=== PATIENT | female | born 1950 | race American Indian/Alaskan Native ===

== ENCOUNTER 2019-11-12 23:40 | Emergency (ER) | payer MEDICARE, OTHER ==
--- NOTE | 2019-11-13 00:49 | Emergency Department Report ---
ED General Adult HPI - General Chief complaint: Neck Pain/Injury Stated complaint: NECK/BACK PAIN PUI?: No Time Seen by Provider: 11/13/19 00:45 Source: patient, RN notes reviewed, old records reviewed Mode of arrival: Ambulatory Limitations: No Limitations - History of Present Illness Initial comments: Primary care doctor: Dr. Decker The patient is a 69-year-old female. She is not known to myself previously. 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 Patient presents to the emergency room with a complaint of nontraumatic upper thoracic back pain, present for 3 to 4 days, which occasionally radiates to the trapezius. The patient denies headache, chest pain, shortness of breath, abdominal pain, nausea, vomiting, dysuria, irritative and obstructive urinary symptoms, extremity weakness and or numbness. She denies recent travel, surgeries, immobilization. She is somewhat anxious and "feels shaky." Very sparsely consumes alcohol, once every 3 to 4 months. Her pain is throbbing, and improved with rest, and acetaminophen [id number]. -: Gradual, days(s) Location: back Radiation: neck Quality: aching Consistency: intermittent Improves with: medication, rest Worsens with: movement - Related Data Home Medications Medication Instructions Recorded Confirmed Last Taken Levothyroxine [Synthroid] 75 mcg PO QAM 08/31/13 08/03/15 08/30/13 Lisinopril/Hydrochlorothiazide 1 tab PO QDAY 08/31/13 08/03/15 08/30/13 [Lisinopril-Hctz 20-12.5 mg Tab] Metformin HCl [metFORMIN ER] 500 mg PO BID 08/31/13 08/03/15 08/30/13 NIFEdipine [NIFEdipine ER] 90 mg PO QDAY 08/31/13 08/03/15 08/30/13 Previous Rx's Medication Instructions Recorded Last Taken Type Acetaminophen [Acetaminophen 8 650 mg PO Q6HR PRN #30 tab 11/13/19 Unknown Rx Hour] Ibuprofen [Motrin] 400 mg PO Q8H PRN #30 tablet 11/13/19 Unknown Rx Allergies Allergy/AdvReac Type Severity Reaction Status Date / Time No Known Allergies Allergy Verified 08/31/13 08:19 ED Review of Systems ROS: Stated complaint: NECK/BACK PAIN Other details as noted in HPI Constitutional: denies: fever Eyes: denies: eye discharge ENT: denies: epistaxis Respiratory: denies: cough Cardiovascular: denies: chest pain Gastrointestinal: denies: abdominal pain Musculoskeletal: back pain, arthralgia, myalgia Skin: denies: lesions Neurological: denies: weakness, numbness, paresthesias Psychiatric: anxiety ED Past Medical Hx - Past Medical History Previous Medical History?: Yes Hx Hypertension: Yes Hx Diabetes: Yes Hx Renal Disease: Yes Additional medical history: High Cholesterol - Surgical History Past Surgical History?: Yes Additional Surgical History: tubal ligation - Social History Smoking Status: Never Smoker Substance Use Type: None - Medications Home Medications: Home Medications Medication Instructions Recorded Confirmed Last Taken Type Levothyroxine [Synthroid] 75 mcg PO QAM 08/31/13 08/03/15 08/30/13 History Lisinopril/Hydrochlorothiazide 1 tab PO QDAY 08/31/13 08/03/15 08/30/13 History [Lisinopril-Hctz 20-12.5 mg Tab] Metformin HCl [metFORMIN ER] 500 mg PO BID 08/31/13 08/03/15 08/30/13 History NIFEdipine [NIFEdipine ER] 90 mg PO QDAY 08/31/13 08/03/15 08/30/13 History Acetaminophen [Acetaminophen 8 650 mg PO Q6HR PRN #30 tab 11/13/19 Unknown Rx Hour] Ibuprofen [Motrin] 400 mg PO Q8H PRN #30 tablet 11/13/19 Unknown Rx ED Physical Exam - General Limitations: No Limitations General appearance: alert, in no apparent distress - Head Head exam: Present: atraumatic, normocephalic - Eye Eye exam: Present: normal appearance, PERRL, EOMI, other (Visual acuity intact t o finger counting, color perception, reading at a close distance). Absent: nystagmus - ENT ENT exam: Present: normal exam, normal orophraynx, mucous membranes moist, normal external ear exam - Neck Neck exam: Present: normal inspection, tenderness (Reproducible paracervical and posterior trapezius tenderness), full ROM, other (There is no midline cervical spine tenderness) - Respiratory Respiratory exam: Present: normal lung sounds bilaterally. Absent: respiratory distress - Cardiovascular Cardiovascular Exam: Present: tachycardia, systolic murmur (2/6 systolic murmur, loudest at right and left second intercostal spaces. The patient states this is chronic.). Absent: bradycardia, irregular rhythm - GI/Abdominal GI/Abdominal exam: Present: soft, normal bowel sounds. Absent: distended, tenderness, guarding, rebound, rigid, pulsatile mass - Extremities Exam Extremities exam: Present: normal inspection, full ROM, other (2+ pulses noted in the bilateral upper and lower extremities. There is no palpable cord. negative Homans sign. Muscular compartments are soft. The pelvis is stable.). Absent: pedal edema, calf tenderness - Back Exam Back exam: Present: normal inspection, full ROM, paraspinal tenderness. Absent: tenderness, CVA tenderness (R), CVA tenderness (L), vertebral tenderness - Neurological Exam Neurological exam: Present: alert, oriented X3, other (No facial droop. Tongue midline. Extraocular movements intact bilaterally. Facial sensation intact to light touch in V1, V2, V3 distribution bilaterally. 5 and a 5 strength in 4 extremities. Sensation intact to light touch in 4 extremities.). Absent: motor sensory deficit - Psychiatric Psychiatric exam: Present: anxious - Skin Skin exam: Present: warm, dry, intact, normal color. Absent: rash ED Course Vital Signs 11/12/19 11/13/19 11/13/19 23:53 00:47 01:00 Temperature 98.1 F 97.9 F Pulse Rate 114 H 99 H 102 H Respiratory 18 17 15 Rate Blood Pressure 189/95 180/91 Blood Pressure 187/90 [Left] O2 Sat by Pulse 99 99 98 Oximetry 11/13/19 11/13/19 11/13/19 01:16 01:30 01:34 Temperature 98.3 F Pulse Rate 97 H 93 H Respiratory 14 Rate Blood Pressure 179/88 179/88 Blood Pressure [Left] O2 Sat by Pulse 98 Oximetry 11/13/19 11/13/19 11/13/19 02:00 02:30 03:00 Temperature Pulse Rate 95 H 88 102 H Respiratory 17 17 14 Rate Blood Pressure 181/93 177/93 181/93 Blood Pressure [Left] O2 Sat by Pulse 98 98 99 Oximetry 11/13/19 11/13/19 03:30 04:00 Temperature Pulse Rate 94 H 89 Respiratory 19 18 Rate Blood Pressure 179/83 182/89 Blood Pressure [Left] O2 Sat by Pulse 98 97 Oximetry - Reevaluation(s) Reevaluation #1: 11/13/19 01:57 Differential diagnosis, including but not limited to: Musculoskeletal back pain, trapezius neck pain, pneumonia, pulmonary embolism, aortic disease Assessment and plan: 69-year-old female with market hypertension, reports taking her nifedipine yesterday, with equal pulses in the upper and lower extremities, no chest pain, no shortness of breath, no abdominal pain, no lower back pain, no pulsatile abdominal mass, unremarkable cranial nerves, no recent trauma, no recent chiropractic manipulation, no carotid bruits, no cranial nerve deficits. We will treat her pain, she is afebrile rectally, she will be given amlodipine in the emergency room for her elevated blood pressure, CT scan of the chest will be obtained to further evaluate thoracic anatomy. Reassess after initial data points. This is unlikely to be an atypical presentation of acute coronary syndrome, furthermore, her EKG is unchanged from prior, and if troponin is negative x1, given that symptoms have been present for 3 to 4 days, acute myocardial infarction has been excluded. We will reassess after her initial data points have resulted. Reevaluation #2: 11/13/19 05:[address] scan of the chest negative for acute disease. Repeat examination is fairly benign and unremarkable, has chronic hypertension that she can follow-up with her outpatient primary care doctor and her court advocate. ED Medical Decision Making - Lab Data Result diagrams: 11/13/19 01:07 11/13/19 01:07 Vital Signs 11/12/19 11/13/19 11/13/19 23:53 00:47 01:16 Temperature 98.1 F 97.9 F 98.3 F Pulse Rate 114 H 99 H Respiratory 18 17 Rate Blood Pressure 189/95 Blood Pressure 187/90 [Left] O2 Sat by Pulse 99 99 Oximetry 11/13/19 01:34 Temperature Pulse Rate 93 H Respiratory Rate Blood Pressure 179/88 Blood Pressure [Left] O2 Sat by Pulse Oximetry Lab Results 11/13/19 11/13/19 Range/Units 01:07 01:07 WBC 8.1 (4.5-11.0) K/mm3 RBC 4.19 (3.65-5.03) M/mm3 Hgb 13.9 (10.1-14.3) gm/dl Hct 37.6 (30.3-42.9) % MCV 90 (79-97) fl MCH 33 H (28-32) pg MCHC 37 H (30-34) % RDW 13.5 (13.2-15.2) % Plt Count 310 (140-440) K/mm3 Lymph % (Auto) 19.2 (13.4-35.0) % [place] % (Auto) 6.0 (0.0-7.3) % Eos % (Auto) 0.4 (0.0-4.3) % Baso % (Auto) 0.5 (0.0-1.8) % Lymph # 1.6 (1.2-5.4) K/mm3 [place] # 0.5 (0.0-0.8) K/mm3 Eos # 0.0 (0.0-0.4) K/mm3 Baso # 0.0 (0.0-0.1) K/mm3 Seg Neutrophils % 73.9 H (40.0-70.0) % Seg Neutrophils # 6.0 (1.8-7.7) K/mm3 PT 12.5 (12.2-14.9) Sec. INR 0.95 (0.87-1.13) D-Dimer 343.34 H (0-234) ng/mlDDU Lab Results 11/13/19 11/13/19 11/13/19 Range/Units 01:07 01:07 01:07 WBC 8.1 (4.5-11.0) K/mm3 RBC 4.19 (3.65-5.03) M/mm3 Hgb 13.9 (10.1-14.3) gm/dl Hct 37.6 (30.3-42.9) % MCV 90 (79-97) fl MCH 33 H (28-32) pg MCHC 37 H (30-34) % RDW 13.5 (13.2-15.2) % Plt Count 310 (140-440) K/mm3 Lymph % (Auto) 19.2 (13.4-35.0) % [place] % (Auto) 6.0 (0.0-7.3) % Eos % (Auto) 0.4 (0.0-4.3) % Baso % (Auto) 0.5 (0.0-1.8) % Lymph # 1.6 (1.2-5.4) K/mm3 [place] # 0.5 (0.0-0.8) K/mm3 Eos # 0.0 (0.0-0.4) K/mm3 Baso # 0.0 (0.0-0.1) K/mm3 Seg Neutrophils % 73.9 H (40.0-70.0) % Seg Neutrophils # 6.0 (1.8-7.7) K/mm3 PT 12.5 (12.2-14.9) Sec. INR 0.95 (0.87-1.13) D-Dimer 343.34 H (0-234) ng/mlDDU Sodium 137 (137-145) mmol/L Potassium 3.8 (3.6-5.0) mmol/L Chloride 100.4 (98-107) mmol/L Carbon Dioxide 22 (22-30) mmol/L Anion Gap 18 mmol/L BUN 15 (7-17) mg/dL Creatinine 1.1 (0.7-1.2) mg/dL Estimated GFR 59 ml/min BUN/Creatinine Ratio 14 % Glucose 125 H (65-100) mg/dL Calcium 9.6 (8.4-10.2) mg/dL Magnesium 1.90 (1.7-2.3) mg/dL Total Bilirubin 0.40 (0.1-1.2) mg/dL AST 25 (5-40) units/L ALT 12 (7-56) units/L Alkaline Phosphatase 71 (35-129) units/L Total Creatine Kinase 269 H (30-135) units/L Troponin T < 0.010 (0.00-0.029) ng/mL Total Protein 8.1 (6.3-8.2) g/dL Albumin 4.2 (3.9-5) g/dL Albumin/Globulin Ratio 1.1 % Vital Signs 11/12/19 11/13/19 11/13/19 23:53 00:47 01:16 Temperature 98.1 F 97.9 F 98.3 F Pulse Rate 114 H 99 H Respiratory 18 17 Rate Blood Pressure 189/95 Blood Pressure 187/90 [Left] O2 Sat by Pulse 99 99 Oximetry 11/13/19 01:34 Temperature Pulse Rate 93 H Respiratory Rate Blood Pressure 179/88 Blood Pressure [Left] O2 Sat by Pulse Oximetry - EKG Data -: EKG Interpreted by Me Rate: tachycardia - EKG Data 11/13/19 01:57 This is a sinus rhythm, 98 bpm, there is a borderline leftward axis deviation, with left ventricular hypertrophy, repolarization changes, and first-degree AV block. This EKG is abnormal. The EKG is not a STEMI. It appears to be unchanged from prior EKG from August 2015 - Radiology Data Radiology results: pending, report reviewed, image reviewed X-ray of the chest is negative for acute disease Critical care attestation.: If time is entered above; I have spent that time in minutes in the direct care of this critically ill patient, excluding procedure time. ED Disposition Clinical Impression: Elevated blood pressure reading, Upper back pain, Trapezius strain Disposition: - TO HOME OR SELFCARE Is pt being admited?: No Does the pt Need Aspirin: No Condition: Stable Additional Instructions: Take the prescribed medications as needed and directed. Do not take metformin medication for the next 2 days, if patient takes this medication. Rest, avoid heavy lifting, and avoid strenuous physical activities. Patient may alternate ice packs and heat packs to the back and neck as needed for pain control. Patient may also benefit from acupuncture, massage and complementary therapy for her back pain and neck pain. Follow-up with your primary care doctor within the next 5 to 7 days. Please return to the emergency room right away with new pain, worsening pain, migration of pain, projectile vomiting, change in mental status, confusion, inability to tolerate liquid feeds, new, worsened or different symptoms not present on the initial emergency room evaluation Referrals: JUDY MCARTHUR MD [Staff Physician] - 3-5 Days RIP HOBBS MD [Staff Physician] - 3-5 Days
[2019-11-13] MEDS ORDERED: MORPHINE 4 MG/1 ML INJ IV ONE ×2 (01:01→04:15)
[2019-11-13] MEDS ORDERED: SODIUM CHLORIDE 0.9% 500 ML 500 ML IV ONE (01:01)
[2019-11-13] MEDS ORDERED: ACETAMINOPHEN 325 MG TAB PO ONE (01:01)
[2019-11-13] MEDS ORDERED: amLODIPine 10 MG TAB PO STA (01:02)
[2019-11-13 01:18] LABS: Basophils % (Auto) 0.5 % (0.0-1.8); Eosinophils % (Auto) 0.4 % (0.0-4.3); Lymphocytes # (Auto) 1.6 K/mm3 (1.2-5.4); Lymphocytes % (Auto) 19.2 % (13.4-35.0); Mean Corpuscular HGB Conc 37 % (30-34); Mean Corpuscular Volume 90 fl (79-97); Monocytes # (Auto) 0.5 K/mm3 (0.0-0.8); Platelet Count 310 K/mm3 (140-440); Red Blood Count 4.19 M/mm3 (3.65-5.03); Red Cell Distribution Width 13.5 % (13.2-15.2)
[2019-11-13 01:24] LABS: Hematocrit 37.6 % (30.3-42.9); Hemoglobin 13.9 gm/dl (10.1-14.3)
[2019-11-13 01:32] LABS: INR 0.95 (0.87-1.13)
--- NOTE | 2019-11-13 01:39 | XRay Report ---
CHEST 1 VIEW 11/13/2019 12:25 AM INDICATION / CLINICAL INFORMATION: upper back pain rad to neck, tachycardia. COMPARISON: None available. FINDINGS: SUPPORT DEVICES: None. HEART / MEDIASTINUM: No significant abnormality. LUNGS / PLEURA: No significant pulmonary or pleural abnormality. No pneumothorax. ADDITIONAL FINDINGS: No significant additional findings. IMPRESSION: 1. No acute findings. Signer Name: Quique Antoine MD Signed: 11/13/2019 1:34 AM Workstation Name: [employer]
[2019-11-13 02:13] LABS: BUN/Creatinine Ratio 14; Blood Urea Nitrogen 15 mg/dL (7-17); Calcium 9.6 mg/dL (8.4-10.2)
[2019-11-13 02:14] LABS: Alanine Aminotransferase 12 units/L (7-56); Albumin 4.2 g/dL (3.9-5); Hemolysis Index 7
--- NOTE | 2019-11-13 03:31 | Cat Scan Report ---
CTA CHEST WITH IV CONTRAST INDICATION: Back/chest pain and tachycardia. TECHNIQUE: Axial CT images were obtained through the chest after injection of 100 cc Omnipaque 350 IV contrast. 3 plane MIP reconstructions were produced. All CT scans at this location are performed using CT dose reduction for ALARA by means of automated exposure control. COMPARISON: None available. FINDINGS: PULMONARY ARTERIES: No pulmonary emboli. THORACIC AORTA: No acute abnormality. HEART: Moderate cardiomegaly. CORONARY ARTERIES: Severe coronary artery calcifications in LAD. PLEURA: No pleural effusion. No pneumothorax. LYMPH NODES: No significant adenopathy. LUNGS: Bilateral lower lobe linear scarring, unchanged. No acute air space or interstitial disease. ADDITIONAL FINDINGS: None. UPPER ABDOMEN: No acute findings. SKELETAL STRUCTURES: No significant osseous abnormality. IMPRESSION: 1. No CT evidence for pulmonary embolism. 2. No acute findings. Signer Name: Quique Antoine MD Signed: 11/13/2019 3:27 AM Workstation Name: [id number]
[2019-11-13] MEDS ORDERED: KETOROLAC 30 MG/1 ML INJ IV ONE (04:14)
[2019-11-13 05:27] VITALS: BP 175/94
== END 2019-11-13 05:25 | disposition home or self-care (01) ==
LOC: ED 23:40
DX: S29.012A Strain of muscle and tendon of back wall of thorax, initial encounter (principal); I10 Essential (primary) hypertension; E11.9 Type 2 diabetes mellitus without complications; E78.00 Pure hypercholesterolemia, unspecified; Z98.51 Tubal ligation status; Z79.899 Other long term (current) drug therapy; X58.XXXA Exposure to other specified factors, initial encounter; Y93.89 Activity, other specified; Y92.89 Other specified places as the place of occurrence of the external cause; Y99.8 Other external cause status
CPT/HCPCS: 36415; 71045; 71275; 80053; 82550; 83735; 84443; 84484; 85025; 85379; 85610; 93005; 96374; 96375; 96376; 99285; J1885; J2270; J7040; Q9967